=== PATIENT | female | born 1985 ===

== ENCOUNTER 2017-05-13 07:06 | Day surgery (SDC) | payer OTHER ==
[2017-05-13 07:34] VITALS: BMI 23.3
[2017-05-13] MEDS ORDERED: Propofol 10 mg/ml Inj (20 ML) ONE (08:29)
[2017-05-13] MEDS ORDERED: Lidocaine Hydrochloride 5 ML INJ ONE (08:30)
[2017-05-13 09:12] VITALS: TEMP 98.1
[2017-05-13 09:55] VITALS: PULSE 59
[2017-05-13 09:57] VITALS: BP 99/53; RESP 14; O2SAT 100
== END 2017-05-13 09:55 | disposition home or self-care (01) ==
LOC: C.ENDO 07:06
PROVIDERS: ATTEND Internal Medicine
DX: K52.0 Gastroenteritis and colitis due to radiation (principal); K29.50 Unspecified chronic gastritis without bleeding; B96.81 Helicobacter pylori [H. pylori] as the cause of diseases classified elsewhere
CPT/HCPCS: 43239; 45380; 84703; 88305; 88313; 88342; J2704; J3010